=== PATIENT | male | born 1995 | race Caucasian/White ===

== ENCOUNTER 2017-10-23 22:50 | Emergency (ER) | payer BC ==
--- NOTE | 2017-10-23 23:32 | EDPHY ---
H & P Stated Complaint: NOSE BLEED/ W/ HX OF NOSE BLEEDS Time Seen by Provider: 10/23/17 23:32 HPI/ROS: HPI CHIEF COMPLAINT: Epistaxis x2 hours HISTORY OF PRESENT ILLNESS: Otherwise healthy 21-year-old male, no significant medical history presents emergency room with epistaxis. This been ongoing for 2 hr. He states that he often gets nose bleeds. He does endorse digital trauma. He tried to get the bleeding to stop prior to arrival was unable to do so and came to the emergency room. Patient is hemodynamically stable no acute distress. Past Medical History: No significant medical history Past Surgical History: No significant surgical history Social History: Denies drugs alcohol tobacco. Family History: Noncontributory ROS REVIEW OF SYSTEMS: A comprehensive 10 point review of systems is otherwise negative aside from elements mentioned in the history of present illness. Exam Constitutional triage nursing summary reviewed, vital signs reviewed, awake/ alert. Eyes normal conjunctivae and sclera, EOMI, PERRLA. HENT bilateral nares show dry blood both nares. Right Nare shows blood. Most likely anterior bleed. Left Nare shows no blood. Posterior pharynx unremarkable. moist mucus membranes, no epistaxis, neck supple/ no meningismus , no raccoon eyes. Respiratory clear to auscultation bilaterally, normal breath sounds, no respiratory distress, no wheezing. Cardiovascular rate normal, regular rhythm, no murmur, no edema, distal pulses normal. Gastrointestinal soft, non-tender, no rebound, no guarding, normal bowel sounds, no distension, no pulsatile mass. Genitourinary no CVA tenderness. Musculoskeletal no midline vertebral tenderness, full range of motion, no calf swelling, no tenderness of extremities, no meningismus, good pulses, neurovascularly intact. Skin pink, warm, & dry, no rash, skin atraumatic. Neurologic awake, alert and oriented x 3, AAOx3, moves all 4 extremities equally, motor intact, sensory intact, CN II-XII intact, normal cerebellar, normal vision, normal speech. Psychiatric normal mood/affect. Heme/Lymph/Immune no lymphadenopathy. Differential Diagnosis: Includes but is not limited to in a particular order epistaxis, epistaxis from digital trauma Medical Decision Making: Plan for this patient, will place a nasal clamp. And watch. Re-evaluation: 1250: Patient had direct pressure here in the emergency room for an hour the nosebleed has resolved. Anterior right nare bleed. Return precautions discussed with the patient. He understands return emergency room if develops recurrent nosebleed. Do recommend applying direct pressure with tilted his head forward. Return if he is unable to get this stopped. ENT referral given. Source: Patient - Personal History Current Tetanus Diphtheria and Acellular Pertussis (TDAP): Yes - Medical/Surgical History Hx Asthma: No Hx Chronic Respiratory Disease: No Hx Diabetes: No Hx Cardiac Disease: No Hx Renal Disease: No Hx Cirrhosis: No Hx Alcoholism: No Hx HIV/AIDS: No Hx Splenectomy or Spleen Trauma: No Other PMH: NOSEBLEEDS - Social History Smoking Status: Never smoked Constitutional: Initial Vital Signs Temperature (C) 37.5 C 10/23/17 23:08 Heart Rate 99 10/23/17 23:08 Respiratory Rate 16 10/23/17 23:08 Blood Pressure 143/90 H 10/23/17 23:08 O2 Sat (%) 95 10/23/17 23:08 O2 Delivery Mode Room Air Allergies/Adverse Reactions: No Known Allergies Allergy (Unverified 10/23/17 23:08) Home Medications: Medication Instructions Recorded NK [No Known Home Meds] 10/23/17 Departure - Departure Disposition: Home, Routine, Self-Care Clinical Impression: Epistaxis Condition: Good Instructions: Nosebleed (ED) Additional Instructions: 1. Return emergency room if develops worsening nose bleed. 2. If you rebleed hold direct pressure tilt her head forward. 3. Return if worse. 4. Follow up with ENT as needed. Referrals: NONE *PRIMARY CARE P,. [Primary Care Provider] - As per Instructions Adams Torres MD [Medical Doctor] - As per Instructions
[2017-10-23] MEDS ORDERED: SILVER NITRATE APPLICATOR 1 APPL TP ONE (23:36)
[2017-10-24 00:58] VITALS: BP 134/74
== END 2017-10-24 00:57 | disposition home or self-care (01) ==
PROC: 2Y41X5Z Packing of Nasal Region using Packing Material (ICD-10-PCS; principal; 2017-10-23)
DX: R04.0 Epistaxis (principal)